=== PATIENT | male | born 1970 | race Caucasian/White ===

== ENCOUNTER 2016-08-02 13:19 | Emergency (ER) | payer SELFPAY ==
[~2016-08-02] VITALS: Ht 170.2 cm; Wt 74.8 kg
[2016-08-02 13:56] VITALS: BP 129/87
--- NOTE | 2016-08-02 14:46 | ED HAND/WRIST INJURY COMPLAINT ---
History of Present Illness General Chief Complaint: Laceration Procedure Stated Complaint: LAC TO HAND Source: patient, old records Exam Limitations: no limitations Vital Signs & Intake/Output Vital Signs & Intake/Output Vital Signs Date Time Temp Pulse Resp B/P Pulse O2 O2 Flow FiO2 Ox Delivery Rate 08/02 1356 97.2 69 18 129/87 99 Room Air Allergies Coded Allergies: No Known Allergies (08/02/16) Reconcile Medications No Known Home Medications Triage Note: 46 Y/O MALE C/O LACERATION TO L HAND S/P CUTTING ON UTILITY BLADE AT WORK, 1300. STATES LAST TETANUS 2 YEARS AGO. NO ACTIVE BLEEDING. WORKMANS COMP COMPLETED. Triage Nurses Notes Reviewed? yes Occurred: just prior to arrival Duration: hour(s): (1), constant Timing: single episode today Injury Environment: work Severity: mild Severity Numbers: 3 Pain/Injury Location: Left: Hand. Context: laceration Method of Injury: laceration No Modifying Factors: none Associated Symptoms: none HPI: 46-year-old male right-hand dominant presents to emergency room status post sustaining laceration to his left hand just prior to arrival when he cut it on a utility knife at work now presents complaining of mild aching pain over the laceration. He denies any numbness tingling or difficulty with range of motion of his fingers or hand. He has not taken anything for his symptoms and is declining anything when offered. There is no other injury his last tetanus is up-to-date and there are no modifying factors or associated symptoms otherwise. (RONAN SILVESTRE) Past History Travel History Traveled to [place] past 21 day No Medical History Any Pertinent Medical History? none Neurological: NONE EENT: NONE Cardiovascular: NONE Respiratory: NONE Gastrointestinal: NONE Hepatic: NONE Renal: NONE Musculoskeletal: NONE Psychiatric: NONE Endocrine: NONE Blood Disorders: NONE Cancer(s): NONE MARKET SPECIALIST/Reproductive: NONE Surgical History Surgical History: non-contributory Psychosocial History What is your primary language Thai Tobacco Use: Never used Family History Hx Contributory? No (RONAN SILVESTRE) Review of Systems Review of Systems Constitutional: Reports: see HPI. All Other Systems: Reviewed and Negative Comments Review of systems: See HPI, All other systems negative. Constitutional, no chills no fever, no malaise HEENT: No visual changes no sore throat no congestion, Cardiovascular: No chest pain , no palpitation Skin, no rashes, no change in skin Respiratory: No dyspnea no cough GI: No nausea no vomiting, no diarrhea, Muscle skeletal: No joint pain, no joint swelling, no back pain, no neck pain, Neurologic: no headache Psych: No stress. Heme/endocrine: No bruising no bleeding Immunology: No lymphadenopathy (RONAN SILVESTRE) Physical Exam Physical Exam General Appearance: well developed/nourished, alert, awake Hand Left: lacerations Hand Right: normal inspection Comments: Well-developed well-nourished patient in no apparent distress. HEENT: Atraumatic, extraocular motion intact Neck: Supple, FROM Back: FROM Respiratory: No respiratory distress. Patient speaking in full complete sentences. Breath sounds clear to auscultation bilaterally: NO W/R/R Shoulder: Atraumatic/Stable. FROM . Elbow: Atraumatic/stable. FROM. No laxity Upper arm/Forearm: Atraumatic. Nontender. 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 Brisk cap refill Lower Extremities: full range of motion Neuro: Alert and oriented x3 Skin: Warm & dry;No appreciable rash on exposed skin Psych: Mood affect normal, normal memory normal judgment. Diagram Hands Back 1) Laceration as described (RONAN SILVESTRE) Progress Differential Diagnosis: contusion, dislocation, fracture, sprain, tendon injury Plan of Care: Current Medications Sig/Genaro Start time Last Medication Dose Stop Time Status Admin Lidocaine 20 ML ONCE ONE 08/02 1500 AC (Lidocaine 1%) 08/02 1501 After verbal consent was obtained the area is anesthetized with lidocaine 1% the wound was thoroughly irrigated with normal saline Betadine peroxide. Lidocaine 1% 5 mL instilled the wound was closed with ssutures 3-0 x 5. Patient tolerated procedure well I discussed with him need for close follow-up return in 7-10 days for suture removal the possibility of a deep tendon injury form body not seen on examination still exists to return with any concerns he. Plan cleared for discharge (RONAN SILVESTRE) Departure Departure Disposition: HOME OR SELF CARE Condition: Stable Clinical Impression Primary Impression: Hand laceration Referrals: CLARISSA CANO,MAI Hawkins (PCP/Family) Additional Instructions: Keep area clean and covered as discussed, bacitracin daily. Return to ER in 7- 10 days for suture removal. The possibility of a retained foreign body not seen during examination today or deep tendon injury exists. Return to ER anytime sooner with any concerns or signs of infection: Redness, warmth, swelling discharge fever or chills. Departure Forms: Customer Survey Employee Industrial Accident General Discharge Information Prescriptions: Current Visit Scripts No Known Home Medications (RONAN SILVESTRE) PA/MAJOR GIFTS DIRECTOR Co-Sign Statement Statement: ED Attending supervision documentation- [] I saw and evaluated the patient. I have also reviewed all the pertinent lab results and diagnostic results. I agree with the findings and the plan of care as documented in the PA's/MAJOR GIFTS DIRECTOR's documentation. [X] I have reviewed the ED Record and agree with the PA's/MAJOR GIFTS DIRECTOR's documentation. [] Additions or exceptions (if any) to the PAs/MAJOR GIFTS DIRECTOR's note and plan are summarized below: [] (BENNY LANDEROS DO) Procedures Laceration/Wound Repair Laceration/Wound Repair: Wound Location: upper extremity (left) Wound's Depth, Shape: linear, superficial Wound Length (cm): 2.0 Wound Explored: clean, no foreign body removed Irrigated w/ Saline (ccs): 300 Betadine Prep? Yes Anesthesia: 1% lidocaine Volume Anesthetic (ccs): 5 Wound Repaired With: sutures Suture Size/Type: 3:0 Number of Sutures: 5 Layer Closure? No Tetanus Status: up to date (RONAN SILVESTRE)
== END 2016-08-02 15:34 ==
LOC: ERH 13:19
DX: S61.412A Laceration without foreign body of left hand, initial encounter (principal); W26.0XXA Contact with knife, initial encounter